=== PATIENT | female | born 1960 | race Caucasian/White ===

== ENCOUNTER 2021-05-18 12:26 | Emergency (ER) | payer OTHER ==
[~2021-05-18 12:26] MED LIST: ASPIRIN CHEWABL81 MG PO; BACLOFEN 10MG T10 MG PO; BIOTIN-D0.5 GM PO; BUSPAR5 MG PO; CRESTOR5 MG PO; GLUCOTROL5 MG PO; LISINOPRIL/HCTZ; NEBULIZER UNIT NEB; NORCO 5-325 TA1 EACH PO; PREDNISONE 20MG20 MG PO
[2021-05-18 13:50] LABS: BASOPHIL 0.6 % (0-2); EOSINOPHIL 3.1 % (0-5); HCT 42.8 % (37.0-47.0); HGB 14.3 g/dl (12.5-16.0); LYMPHOCYTE 21.5 % (15-48); MCH 28.9 pg (25.0-31.0); MCHC 33.4 g/dL (32.0-36.0); MCV 86.5 fL (78.0-100.0); MONOCYTE 7.6 % (0-12); MPV 11.8 fL (6.0-9.5); NEUTROPHIL 66.9 % (41-80); NRBC 0; PLT 157 K/uL (150-400); RBC 4.95 M/uL (4.20-5.40); RDW 12.9 % (11.5-14.0); WBC 8.9 K/uL (4.0-10.5)
[2021-05-18 14:00] LABS: BUN/CREAT RATIO (CALC) 18.9 RATIO; CREATININE 0.74 mg/dL (0.51-0.95); POTASSIUM 4.2 mmol/L (3.5-5.1)
== END 2021-05-18 16:59 | disposition home or self-care (01) ==
LOC: FER 12:26
PROVIDERS: Emergency Medicine
DX: R42 Dizziness and giddiness (principal); E11.9 Type 2 diabetes mellitus without complications; Z79.84 Long term (current) use of oral hypoglycemic drugs; Z88.2 Allergy status to sulfonamides; Z88.5 Allergy status to narcotic agent; Z91.040 Latex allergy status
CPT/HCPCS: 36415; 80048; 85025; 93005; J7030